=== PATIENT | female | born 2000 | race African-American/Black ===

== ENCOUNTER → 2018-08-25 13:21 | Outpatient (CLI) | payer MEDICAID, SELFPAY ==
--- NOTE | 2018-08-25 13:37 | CT_ITS ---
CT abdomen pelvis w con CLINICAL INDICATION: Right lower quadrant pain with nausea ITS.REASON: RT LOW QUAD PAIN AND NAUSEA ORDERING PHYSICIAN: Albina Jiménez PATIENT AGE: 18 years COMPARISON: None TECHNIQUE: Axial images obtained with sagittal and coronal reformats. All CT scans at the facility use one or more dose reduction, viz: automated exposure control, ma/kV adjustment per patient size (including targeted exams where dose is matched to indication, i.e. head), or iterative reconstruction technique. PROCEDURE: Oral Contrast: None IV Contrast: 75 mL's Optiray 350. FINDINGS: Lung bases are clear. Liver, gallbladder, spleen, pancreas, and adrenal glands have an unremarkable appearance. No renal or ureteral calculi. No hydronephrosis.. No evidence of appendicitis, intestinal obstruction, or free air. No pelvic mass abnormal fluid collection or focal inflammatory changes evident within the pelvis. There appears to be a 2.5 similar right ovarian cyst There is grade 1 spondylotic spondylolisthesis of L5 on S1. No acute bony anomalies evident. IMPRESSION: No acute abdominal or pelvic findings. Suspect 2.5 cm right ovarian cyst. This may be confirmed with ultrasound if clinically warranted
== END ==
PROVIDERS: PCP Nurse Practitioner; Visit Provider Nurse Practitioner Family
DX: R10.31 Right lower quadrant pain (principal); R11.0 Nausea
CPT/HCPCS: 74177; Q9967

== ENCOUNTER → 2021-07-02 16:40 | Outpatient (CLI) | payer BC, SELFPAY | PROVIDERS: Visit Provider Nurse Practitioner | DX: U07.1 COVID-19 (principal) | CPT/HCPCS: C9803; U0003; U0005 ==

== ENCOUNTER → 2022-07-30 14:56 | Outpatient (CLI) | payer BC, SELFPAY | PROVIDERS: PCP Emergency Medicine; Visit Provider Obstetrics & Gynecology | DX: N97.0 Female infertility associated with anovulation (principal) | CPT/HCPCS: 36415; 84144 ==

== ENCOUNTER → 2022-09-25 13:07 | Outpatient (CLI) | payer BC, SELFPAY ==
[2022-09-27 13:17] LABS: Progesterone 8.2 ng/mL (.)
== END ==
PROVIDERS: PCP Emergency Medicine; Visit Provider Obstetrics & Gynecology
DX: N97.0 Female infertility associated with anovulation (principal)
CPT/HCPCS: 36415; 84144

== ENCOUNTER → 2022-11-06 13:12 | Outpatient (CLI) | payer BC, SELFPAY ==
[2022-11-06 15:25] LABS: HCG,Quantitative < 2 mIU/ml (0-5.42)
== END ==
PROVIDERS: PCP Emergency Medicine; Visit Provider Obstetrics & Gynecology
DX: N92.6 Irregular menstruation, unspecified (principal); Z32.00 Encounter for pregnancy test, result unknown
CPT/HCPCS: 84702

== ENCOUNTER → 2022-11-27 15:46 | Outpatient (CLI) | payer BC, SELFPAY ==
[2022-11-29 09:32] LABS: Progesterone 11.1 ng/mL (.)
== END ==
PROVIDERS: PCP Emergency Medicine; Visit Provider Obstetrics & Gynecology
DX: N92.6 Irregular menstruation, unspecified (principal)
CPT/HCPCS: 36415; 84144

== ENCOUNTER 2023-12-10 17:34 | Emergency (ER) | payer BC, SELFPAY ==
[2023-12-10 17:55] VITALS: BP 119/66; PULSE 75; RESP 19; TEMP 36.6; O2SAT 96; BMI 47.1
[2023-12-10 18:12] LABS: UTC Strep Screen (Rapid) Positive (Negative)
--- NOTE | 2023-12-10 18:42 | EXP.UTC ---
Discharge Plan Disposition Patient Disposition: Home, Self-Care Condition: Good Prescriptions Prescriptions: New fluticasone propionate [Flonase Allergy Relief] 50 mcg/actuation spray,suspension 1 spray intranasal DAILY Qty: 16 0RF Rx Instructions: administer into each nostril twice a day for a week and then once daily cefdinir 300 mg capsule 300 mg PO Q12H 10 Days Qty: 20 0RF Referrals Follow up/Referrals: Turner Holland MD [Primary Care Provider] - See instructions Activity Restrictions/Add. Instructions Additional Instructions/Restrictions: Take medication as prescribed. If symptoms persist or worsen, return to clinic or PCP. Clinical Impressions Clinical Impression: Acute streptococcal pharyngitis, Acute dysfunction of both eustachian tubes Instructions Patient Instructions: DI for Eustachian Tube Dysfunction-Adult, DI for Strep Throat Discharge ED Provider: Vicki Larsen [facility] [place] HPI General Stated complaint: ear pain, sore throat Mode of Arrival: Ambulatory Source of Information: Patient Limitations: No Limitations Time Seen by Provider: 12/10/23 18:34 Description of Symptoms (Recalled from Triage Doc. by RN): Pt's symptoms are sore throat, and bilateral ear pain. HEENT Symptoms (Recalled from RN notes): Yes Resp Symptoms (Recalled from RN notes): No Skin Symptoms (Recalled from RN notes): No MS Symptoms (Recalled from RN notes): No Functional Status (Recalled from RN notes): n/a History of Present Illness Provider Complaint: Pt reports that she has had a sore throat since Friday and her ears started hurting last night. She has taken cold medication for her symptoms. Related Data Previous Rx's Medication Instructions Recorded cefdinir 300 mg capsule 300 mg PO Q12H 10 days #20 caps 12/10/23 fluticasone propionate 50 1 spray intranasal DAILY #16 grams 12/10/23 mcg/actuation nasal spray,suspension (Flonase Allergy Relief) Allergies Allergy/AdvReac Type Severity Reaction Status Date / Time amoxicillin [From AUGMENTIN] Allergy Unknown Verified 12/10/23 18:06 ampicillin [AMPICILLIN] Allergy Unknown Verified 12/10/23 18:06 clavulanic acid Allergy Unknown Verified 12/10/23 18:06 [From AUGMENTIN] hydrocodone [HYDROCODONE] Allergy Unknown Verified 12/10/23 18:06 Penicillins [PENICILLINS] Allergy Unknown Verified 12/10/23 18:06 Worker's Comp Is this a Worker's Comp case?: No [facility] Disclaimer: The information contained in this section may have been updated after the patient was seen, as this information can be updated by other users. Medical History History of asthma Surgical History History of tonsillectomy Family History Other Cancer Diabetes Hypertension Social History Smoking Status: Former smoker alcohol intake: never substance use type: denies use current occupational status: employed and other Travel in the last 8 weeks: None ROS Obtained: Yes All systems reviewed & no additional complaints except as documented Constitutional Constitutional: Reports system reviewed and no additional complaints, except as documented and Reports malaise Eyes Eyes: Reports system reviewed and no additional complaints, except as documented ENT Ears, Nose, Mouth, and Throat: Reports system reviewed and no additional complaints, except as documented, Reports otalgia, Reports nasal congestion, Reports odynophagia and Reports sore throat Cardiovascular Cardiovascular: Reports system reviewed and no additional complaints, except as documented Respiratory Respiratory: Reports system reviewed and no additional complaints, except as documented Gastrointestinal Gastrointestingal: Reports system reviewed and no additional complaints, except as documented and odynophagia Genitourinary Female Genitourinary: Reports system reviewed and no additional complaints, except as documented Musculoskeletal Musculoskeletal: Reports system reviewed and no additional complaints, except as documented Integumentary/Breasts Skin/Breast: Reports system reviewed and no additional complaints, except as documented Neurologic Neurologic: Reports system reviewed and no additional complaints, except as documented Endocrine Endocrine: Reports system reviewed and no additional complaints, except as documented Hematologic/Lymphatic Henatologic/Lymphatic: Reports system reviewed and no additional complaints, except as documented Allergic/Immunologic Allergic/Immunologic: Reports system reviewed and no additional complaints, except as documented Physical Exam General General appearance: alert Comment: ill appearing Head Head exam: atraumatic and normocephalic Eye Eye exam: Present normal appearance Expanded ENT Exam External ear exam: Present normal external inspection TM/Canal exam: Bilateral TM: bulging and effusion Nose exam: Absent sinus tenderness Nasal speculum exam: Bilateral: other (clear drainage, edematous mucosa) Mouth exam: Present normal external inspection Teeth exam: Present normal inspection Throat exam: Present tonsillar erythema Comment: soft palate petechia Neck Neck exam: Present normal inspection and lymphadenopathy Chest Chest inspection: Present normal inspection and symmetric chest wall rise Respiratory Respiratory exam: Present normal lung sounds bilaterally Cardiovascular Cardiovascular exam: Present regular rate, normal rhythm and normal heart sounds Abdominal Exam Abdominal exam: Present soft and normal bowel sounds Extremities Exam Extremities exam: Present normal inspection Back Exam Back exam: Present normal inspection Neurological Exam Neurological exam: Present alert and oriented X3 Psychiatric Psychiatric exam: Present normal affect and normal mood Skin Skin exam: Present warm, dry and intact Lymphatic Lymphatic Findings: no adenopathy Medical Decision Making Leonides Inquiry Pt receiving controlled substance: No Leonides was queried for this patient: No Vital Signs: 12/10/23 17:55 Temperature 97.9 F Temperature Source Oral Pulse Rate [Right Radial] 75 Respiratory Rate 19 Blood Pressure [Right Arm] 119/66 Blood Pressure Mean [Right Arm] 83 Blood Pressure Source [Right Arm] Automatic Cuff Blood Pressure Position [Right Arm] Sitting 02 Sat by Pulse Oximetry 96 Oxygen Delivery Method Room Air Lab Data Lab results reviewed: Yes I reviewed the patient's lab results. Lab Results 12/10/23 18:10: Strep Scn Rapid Clinic Positive A
[2023-12-10 18:55] VITALS: BP 119/66; PULSE 75; RESP 18; TEMP 36.6; O2SAT 96
== END 2023-12-10 18:55 | disposition home or self-care (01) ==
PROVIDERS: Emergency Provider Nurse Practitioner Family; PCP Emergency Medicine
DX: J02.0 Streptococcal pharyngitis (principal); R07.0 Pain in throat; H69.93 Unspecified Eustachian tube disorder, bilateral
CPT/HCPCS: 87880; 99204; 99212; G0463

== ENCOUNTER 2024-03-23 19:34 | Emergency (ER) | payer BC, SELFPAY ==
[2024-03-23 19:36] VITALS: BP 148/86; PULSE 100; RESP 20; TEMP 36.7; O2SAT 100; BMI 43.3
[2024-03-23 19:40] VITALS: BP 148/86; PULSE 110; O2SAT 97
[2024-03-23 19:44] VITALS: BMI 43.3
--- NOTE | 2024-03-23 19:45 | XR_ITS ---
PROCEDURE INFORMATION: Exam: XR Left Knee Exam date and time: 03/23/2024 7:43 PM Age: 23 years old Clinical indication: Pain; Knee; Left; Additional info: Knee pain TECHNIQUE: Imaging protocol: Radiologic exam of the left knee. Views: 4 or more views. COMPARISON: No relevant prior studies available. FINDINGS: Bones/joints: No acute fracture or malalignment. 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 No joint effusion. Soft tissues: Unremarkable. IMPRESSION: No acute osseous findings.
--- NOTE | 2024-03-23 19:50 | PC.NURSE ---
RAD at BS for xray
[2024-03-23 20:01] VITALS: BP 135/84; PULSE 92; O2SAT 99
--- NOTE | 2024-03-23 20:03 | HMH.EDGENADL ---
Discharge Plan Disposition Patient Disposition: Home, Self-Care Condition: Good Prescriptions Prescriptions: No Action fluticasone propionate [Flonase Allergy Relief] 50 mcg/actuation spray,suspension 1 spray intranasal DAILY Qty: 16 0RF Rx Instructions: administer into each nostril twice a day for a week and then once daily cefdinir 300 mg capsule 300 mg PO Q12H 10 Days Qty: 20 0RF Referrals Follow up/Referrals: Turner Holland MD [Primary Care Provider] - See instructions Kiran Khalil DO [Staff Physician] - See instructions Activity Restrictions/Add. Instructions Additional Instructions/Restrictions: You were evaluated in the emergency department today. At this time, x-rays are reassuring. Since you have significant knee pain and difficulties bearing weight, you were given a brace and crutches here in the ED today. Use these as needed for support. Follow-up closely with orthopedics for reassessment of your knee. Keep your leg elevated and use ice to reduce swelling. Take Tylenol and ibuprofen every 4-6 hours at home as needed for pain. return to the emergency department for new or worsening symptoms Clinical Impressions Clinical Impression: Acute pain of left knee Stand Alone Forms Stand Alone Forms: Work/School Release Instructions Patient Instructions: DI for Knee Pain Print Language Print Language: Mohawk Discharge ED Provider: Pita Bennett General Adult HPI General Chief complaint: Extremity Injury, Lower Stated complaint: AO 03-23-24 left knee went out Time Seen by Provider: 03/23/24 19:39 History of Present Illness HPI narrative: This patient is a 23-year-old female with a history of obesity presenting to the emergency department for evaluation concern for left knee injury. Patient reports that she was pulling weeds outside this evening whenever her left knee suddenly gave out from under her, causing her to fall to the ground. She felt a pop in her left knee and has had pain in her left knee since. She states she cannot bear weight on her left lower extremity secondary to pain and feeling of instability. No other injuries noted. No numbness, tingling, or other concerns. Related Data Previous Rx's ?Medication ?Instructions ?Recorded cefdinir 300 mg capsule 300 mg PO Q12H 10 days #20 caps 12/10/23 fluticasone propionate 50 1 spray intranasal DAILY #16 grams 12/10/23 mcg/actuation nasal spray,suspension (Flonase Allergy Relief) Allergies Allergy/AdvReac Type Severity Reaction Status Date / Time amoxicillin [From AUGMENTIN] Allergy Unknown Verified 12/10/23 18:06 ampicillin [AMPICILLIN] Allergy Unknown Verified 12/10/23 18:06 clavulanic acid Allergy Unknown Verified 12/10/23 18:06 [From AUGMENTIN] hydrocodone [HYDROCODONE] Allergy Unknown Verified 12/10/23 18:06 Penicillins [PENICILLINS] Allergy Unknown Verified 12/10/23 18:06 [facility] Disclaimer: The information contained in this section may have been updated after the patient was seen, as this information can be updated by other users. Medical History History of asthma Surgical History History of tonsillectomy Family History Other Cancer Diabetes Hypertension Social History Smoking Status: Current every day smoker alcohol intake: never substance use type: denies use current occupational status: employed and other Travel in the last 8 weeks: None Other Medical History Have you received the Flu Vaccine for this season: No Have you received the Pneumonia Vaccine: No ROS Obtained: Yes All systems reviewed & no additional complaints except as documented Physical Exam General General appearance: alert, in no apparent distress and obese Head Head exam: atraumatic and normocephalic Eye Eye exam: Present normal appearance, PERRL and EOMI ENT ENT exam: Present normal exam, normal oropharynx, mucous membranes moist and normal external ear exam Neck Neck exam: Present normal inspection, full ROM and trachea midline; Absent tenderness Chest Chest inspection: Present normal inspection and symmetric chest wall rise; Absent tenderness Respiratory Respiratory exam: Present normal lung sounds bilaterally; Absent respiratory distress, wheezes, stridor or accessory muscle use Cardiovascular Cardiovascular exam: Present regular rate and normal rhythm Abdominal Exam Abdominal exam: Present soft; Absent distention, tenderness or guarding Extremities Exam Extremities exam: Present normal capillary refill and other (Neurovascularly intact distally. No appreciable ligamentous instability. No significant deformity. Straight leg raise intact.); Absent full ROM (preserved ROM of L knee from 0 to 60 with significant pain beyond that.), tenderness or edema Back Exam Back exam: Present normal inspection and full ROM; Absent tenderness Neurological Exam Neurological exam: Present alert, oriented X3, CN II-XII intact and normal gait; Absent motor sensory deficit Psychiatric Psychiatric exam: Present normal affect and normal mood Skin Skin exam: Present warm and dry Medical Decision Making Medical Records Medical records reviewed: Yes I reviewed the patient's medical records. Screening: Per USPSTF and CDC recommendations, given the prevalence of disease in our region, it is our hospital?s policy to screen for HIV and viral Hepatitis for all patients aged 18 and over and those with ongoing risk factors. Leonides Inquiry Pt receiving controlled substance: No Vital Signs: 03/23/24 19:36 03/23/24 19:40 03/23/24 20:01 Temperature 98.0 F Temperature Source Oral Pulse Rate 110 H 92 H Pulse Rate [Right] 100 H Respiratory Rate 20 Blood Pressure 148/86 H 135/84 Blood Pressure [Right Arm] 148/86 H Blood Pressure Mean [Right Arm] 106 Blood Pressure Source [Right Arm] Automatic Cuff 02 Sat by Pulse Oximetry 100 97 99 Oxygen Delivery Method Room Air 03/23/24 20:31 03/23/24 21:00 03/23/24 21:22 Temperature 98.3 F Temperature Source Oral Pulse Rate 93 H 85 92 H Pulse Rate [Right] Respiratory Rate 16 Blood Pressure 122/68 128/74 128/74 Blood Pressure [Right Arm] Blood Pressure Mean [Right Arm] Blood Pressure Source [Right Arm] 02 Sat by Pulse Oximetry 97 97 Oxygen Delivery Method Room Air Lab Data Lab results reviewed: Yes I reviewed the patient's lab results. Orders (Tests/Meds): ED MEDICATIONS Discontinued Medications Generic Name Dose Route Start Last Admin Trade Name Freq PRN Reason Stop Dose Admin Acetaminophen 1,000 mg 03/23/24 20:03 03/23/24 20:12 Acetaminophen 500mg Tab PO 03/23/24 20:04 1,000 mg ONCE ONE Administration Ibuprofen 800 mg 03/23/24 20:03 03/23/24 20:12 Ibuprofen 400 Mg Tablet PO 03/23/24 20:04 800 mg ONCE ONE Administration ORDERS Category Date Time Status Knee XR left 4 views [XR knee LT 4V] Stat Exams 03/23/24 19:45 Completed Medical Decision Narrative: In summary, this patient is a 23-year-old female presenting to the Emergency Department for evaluation of traumatic left knee pain. Differential diagnoses considered include but are not limited to fracture, contusion, strain/sprain, ligamentous injury, cartilaginous injury, patellar dislocation. Ruling out the most morbid conditions drove assessment. On exam, the patient is lying in bed in no acute distress with reassuring vital signs on cardiac telemetry. She has pain with range of motion of her left knee but no appreciable ligamentous instability. She is neurovascularly intact distally. She has intact straight leg raise. workup included x-rays of the left knee. She was given oral Tylenol and ibuprofen for symptomatic improvement of pain. I independently interpreted x-rays prior to the radiologist read and noted no acute fracture. Please see their read for final interpretation. On reassessment, the patient has some improvement in her pain but continues to have significant issues with bearing weight. Given this, she was given knee brace for support as well as crutches. Ultimately, I feel she would benefit from close outpatient follow-up with orthopedics for further assessment of potential soft tissue knee injury. She is given instructions for supportive management, instructions for close follow-up, and strict return precautions. She was discharged after all questions were answered Critical Care Critical Care Time Critical Care Time: No
[2024-03-23] MEDS: IBUPROFEN 400 MG TABLET 800 MG PO (20:12)
[2024-03-23] MEDS: ACETAMINOPHEN 500MG TAB 1000 MG PO (20:12)
[2024-03-23 20:31] VITALS: BP 122/68; PULSE 93; O2SAT 97
[2024-03-23 21:00] VITALS: BP 128/74; PULSE 85; O2SAT 97
[2024-03-23 21:22] VITALS: BP 128/74; PULSE 92; RESP 16; TEMP 36.8; O2SAT 97
== END 2024-03-23 21:28 | disposition home or self-care (01) ==
PROVIDERS: Emergency Provider Emergency Medicine; PCP Emergency Medicine
DX: M25.562 Pain in left knee (principal); W18.39XA Other fall on same level, initial encounter; Y93.89 Activity, other specified; Y92.007 Garden or yard of unspecified non-institutional (private) residence as the place of occurrence of the external cause
CPT/HCPCS: 73564; 99283

== ENCOUNTER 2024-04-30 12:53 | Outpatient (RCR) | payer BC, SELFPAY ==
--- NOTE | 2024-04-30 13:45 | HMH.PTOPEV ---
PT Outpatient Evaluation Rehab PT Outpatient Evaluation Start: 04/30/24 13:29 Freq: Status: Active Protocol: Document 04/30/24 13:29 DEREK (Rec: 04/30/24 13:45 DEREK [id number]) E-signed By Kartik Kinney, PT Outpatient Therapy Subjective History Subjective History The patient is a 23 yof who is referred to outpatient Physical Therapy due to L knee pain. She reports approximately 1 month ago when she was working outside in her garden. She reports that it felt like her knee gave out and she fell. She reports that she had an x-ray done and it showed no fractures. She reports that since then it has gotten a little better but she continues to have difficulty with walking anything longer than just a few blocks. She reports pain and difficulty with stairs. She says she wears a knee brace at work which seems to help some. She also reports having to take more time to complete housework. She reports that it still swells occasionally. New diagnosis of cancer in past 12 No months? Chief Complaint Pain,Swelling,Gives out/ Unstable,Weakness Symptom Type Ache Symptoms Relieved By Rest/Positioning,Heat,Ice, Brace/Support,OTC Meds Symptoms Aggravated By Standing,Physical Activity, Twisting,Walking Prior Functional Limitations None Current Functional Limitations Housework,Standing,Squatting, Walking,Stairs Symptom Description Intermittent Level of pain today (0-10) 1 Pain scale - at its best (0-10) 10 Pain scale - at its worst (0-10) 0 Hip/Knee Eval Gait Observation General Gait Pattern Observation Antalgic Gait,Decrease Weight Bear (L),Decrease Stride Lngth (R) Assistive Device Assistive Devices None / NA Palpation Tenderness left Knee Palpation Finding Tenderness Knee Palpation Overall Comment TTP 3/4 usman-patellar area MMT Hip Flexion Strength Grade 3+ Fair+ Hip Abduction Strength Grade 3+ Fair+ Hip Extension Strength Grade 3+ Fair+ Knee Extension Strength Grade 3+ Fair+ Knee Flexion Strength Grade 3+ Fair+ ROM Knee Extension Active Range of Motion ( -5 degrees) Knee Flexion Active Range of Motion ( 110 (soft tissue limit) degrees) Sensation bilateral Comment No abnormalities Special Tests Knee Anterior Drawer Test Negative Left,Negative Right Knee Valgus Stress Test Negative Left,Negative Right Knee Varus Stress Test Negative Left,Negative Right Knee Donte Test Negative Left,Negative Right Patella Apprehension Test Negative Right,Positive Left Patellar Tilt Test Negative Right,Positive Left Lower Extremity Functional Index Activities Today, do you or would you have any difficulty at all with: a.Any of your usual work, housework or A little bit of difficulty school activities b. Your usual hobbies, recreational or Moderate difficulty sporting activities c. Getting into or out of the bath No difficulty d. Walking between rooms No difficulty e. Putting on your shoes or socks No difficulty f. Squatting Moderate difficulty g. Lifting an object, like a bag of No difficulty groceries from the floor h. Performing light activities around No difficulty your home i. Performing heavy activities around A little bit of difficulty your home j. Getting into or out of a car No difficulty k. Walking 2 blocks Moderate difficulty l. Walking a mile Extreme difficulty or unable to perform activity m. Going up or down 10 stairs (about 1 A little bit of difficulty flight of stairs) n. Standing for 1 hour Moderate difficulty o. Sitting for 1 hour No difficulty p. Running on even ground Moderate difficulty q. Running on uneven ground Moderate difficulty r. Making sharp turns while running fast Quite a bit of difficulty s. Hopping A little bit of difficulty t. Rolling over in bed No difficulty LEFI Score Lower Extremity Functional Index Score 57 Miscellaneous Dx PT Eval Objective Objective Anterior knee pain with squat Outpatient Therapy Assessment Impairments Problems/Impairmments Palpation Tenderness,Impaired Strength,Impaired Gait Pattern ,Impaired Walking,Impaired Standing,Impaired Household Care,Impaired Squatting, Impaired Work Activities, Subjective C/O Pain Prognosis Rehab Potential Good Comment Pt demonstrates signs and symptoms consistent with patellar instability. The pt is appropriate for skilled PT at this time. Clinical Impression Consistent with Diagnosis Yes Short Term Goals Number of Weeks 4 Decreased Palpation Tenderness Yes: 1/4 Increase Strength Yes: 4/5 to L knee and hip Improve Gait Pattern without Assistive Yes: No antalgic gait Device Increase Ability to Walk 3 blocks with no pain Improve Ability to Squat Yes: 2/10 pain Improve LEFI Score Yes: to 65 Decrease Subjective C/O Pain Yes: 6/10 at worst Patient to be Ind w/ HEP Yes Fpc Goals Number of Weeks 8 Decreased Palpation Tenderness Yes: 0/4 Increase Strength Yes: 5/5 to L hip and knee Increase Ability to Walk Yes: 1/4 mile no pain Improve Tolerance to Work Activities Yes: full work activities with no pain Improve LEFI Score Yes: to 73 Decrease Subjective C/O Pain Yes: 2/10 at worst Patient to be Ind w/ Advanced HEP Yes Outpatient Therapy Plan of Care Treatment Plan May Include Therapeutic Exercise Including Home Yes Exercise Program Manual Therapy Techniques Yes Neuromuscular Re-education Yes Therapeutic Activities to Return to Yes Previous Functional/Work Level Gait Training Yes ADL/Self Care Education Yes Thermal Modalities Yes Electrical Stimulation Yes Massage Yes Eval/Re-Eval Yes Frequency Times per week 2-3 Duration Number of Weeks 8 Addendums This patient is a candidate for social No or vocational rehab? Patient/Guardian verbally acknowledges Yes understanding of treatment program and consents to further treatment? Patient/Guardian verbally acknowledges Yes understanding of diagnosis, prognosis and goals for treatment? Eval Complexity PT Charges 34836 - Low Complexity Shoulder/Elbow Eval Shoulder Objective Measurements Elbow Objective Measurements PHYSICIAN CERTIFICATION: I certify the specified therapy services for Jose Garza are required, authorized, and reviewed every 30 days.
== END 2024-04-30 23:59 | disposition home or self-care (01) ==
LOC: PT 12:53
PROVIDERS: PCP Emergency Medicine; Visit Provider Physician Assistant Surgical
DX: M25.562 Pain in left knee (principal); S83.002A Unspecified subluxation of left patella, initial encounter
CPT/HCPCS: 97163